=== PATIENT | male | born 1965 | race Two or more races ===

== ENCOUNTER 2024-08-24 07:10 | Outpatient (CLI) | payer OTHER | END 2024-08-24 07:25 | disposition home or self-care (01) | LOC: TOM 07:10 | PROVIDERS: ATTEND Internal Medicine | DX: M25.511 Pain in right shoulder (principal); R10.9 Unspecified abdominal pain; K40.90 Unilateral inguinal hernia, without obstruction or gangrene, not specified as recurrent ==